=== PATIENT | male | born 1940 | race Caucasian/White ===

== ENCOUNTER 2020-04-27 02:58 | Outpatient (CLI) | payer OTHER, SELFPAY ==
[2020-04-27 07:56] LABS: ALT 14 U/L (16-63); AST 13 U/L (15-37); Albumin 3.1 g/dL (3.4-5.0); Alkaline Phosphatase 66 U/L (46-116); Anion Gap 9.1 mmol/L (3-11); BUN 18 mg/dL (7-18); Bilirubin, Total 0.6 mg/dL (0.2-1.0); CO2 25.9 mmol/L (21.0-32.0); CREATININE 1.3 mg/dL (0.70-1.30); Calcium 8.9 mg/dL (8.5-10.1); Chloride 105 mmol/L (98-107); Estimated GFR 53.25 (mL/min/1.73m2); Glucose 97 mg/dL (74-106); Potassium 4.1 mmol/L (3.5-5.1); Sodium 140 mmol/L (136-145); Total Protein 8.4 g/dL (6.4-8.2)
[2020-04-27 08:07] LABS: Abs Immature Grans 0.02 10^3/uL (0.0-0.06); Absolute Basophil Count 0.04 10^3/uL (0.0-0.2); Absolute Eosinophil Count 0.12 10^3/uL (0.0-0.7); Absolute Lymphocyte Count 1.21 10^3/uL (1.2-3.4); Absolute Monocyte Count 0.51 10^3/uL (0.1-0.8); Absolute Neutrophil Count 2.82 10^3/uL (1.2-6.7); Basophils % 0.8; Eosinophils % 2.5; HCT 42.2 % (40.0-50.0); HGB 14.3 g/dL (13.5-17.5); Immature Grans % 0.4; Lymphocytes % 25.6; MCH 31.4 pg (27.0-33.0); MCHC 33.9 % (32.0-36.0); MCV 92.5 fL (80-95); MPV 10.3 fL (8.0-11.0); Monocytes % 10.8; Neutrophils % 59.9; Nucleated RBC 0 %; Platelet Count 226 10^3/uL (130-400); RBC 4.56 10^6/uL (4.36-5.78); RDW 13.6 % (11.8-14.1); RDW-SD 46.6 fL; WBC 4.72 10^3/uL (4.4-10.8)
[2020-04-28 10:39] LABS: IgA 2902 mg/dL (85-499); IgG 445 mg/dL (610-1,616); IgM 28 mg/dL (35-242); Kappa Free Light Chain 80.98 mg/dL (0.33-1.94); Lambda Free Light Chain 0.71 mg/dL (0.57-2.63)
[2020-04-28 14:16] LABS: Albumin 44.5 % (55.8-66.1); Comment (See Note); Monoclonal Spike 28.2 % (None Seen); Total Protein 8.3 g/dL (6.3-8.2)
[2020-04-28 15:07] LABS: Immunotyping, Serum (See Note)
== END 2020-04-27 02:59 | disposition home or self-care (01) ==
PROVIDERS: PCP Family Medicine; Visit Provider Internal Medicine Hematology & Oncology
DX: C90.00 Multiple myeloma not having achieved remission (principal)
CPT/HCPCS: 36415; 80053; 82784; 83883; 84165; 85025; 86320

== ENCOUNTER 2020-05-04 03:50 | Outpatient (CLI) | payer OTHER, SELFPAY ==
[2020-05-04 07:53] LABS: Abs Immature Grans 0.06 10^3/uL (0.0-0.06); Absolute Basophil Count 0.04 10^3/uL (0.0-0.2); Absolute Eosinophil Count 0.27 10^3/uL (0.0-0.7); Absolute Lymphocyte Count 0.91 10^3/uL (1.2-3.4); Absolute Neutrophil Count 5.02 10^3/uL (1.2-6.7); Basophils % 0.6; Eosinophils % 3.9; HCT 42.3 % (40.0-50.0); HGB 14.2 g/dL (13.5-17.5); Immature Grans % 0.9; Lymphocytes % 13.2; MCH 31.3 pg (27.0-33.0); MCHC 33.6 % (32.0-36.0); MCV 93.4 fL (80-95); MPV 11.8 fL (8.0-11.0); Monocytes % 8.7; Neutrophils % 72.7; Nucleated RBC 0 %; Platelet Count 173 10^3/uL (130-400); RBC 4.53 10^6/uL (4.36-5.78); RDW 13.8 % (11.8-14.1); RDW-SD 47.5 fL
== END 2020-05-04 03:51 | disposition home or self-care (01) ==
LOC: LBO 03:50
PROVIDERS: PCP Family Medicine; Visit Provider Internal Medicine Hematology & Oncology
DX: C90.00 Multiple myeloma not having achieved remission (principal)
CPT/HCPCS: 36415; 85025

== ENCOUNTER 2020-05-18 03:24 | Outpatient (CLI) | payer OTHER, SELFPAY ==
[2020-05-18 07:38] LABS: Abs Immature Grans 0.01 10^3/uL (0.0-0.06); Absolute Basophil Count 0.08 10^3/uL (0.0-0.2); Absolute Eosinophil Count 0.17 10^3/uL (0.0-0.7); Absolute Lymphocyte Count 0.85 10^3/uL (1.2-3.4); Absolute Monocyte Count 0.81 10^3/uL (0.1-0.8); Absolute Neutrophil Count 2.32 10^3/uL (1.2-6.7); Basophils % 1.9; HCT 39.8 % (40.0-50.0); HGB 13.4 g/dL (13.5-17.5); Immature Grans % 0.2; MCH 31.5 pg (27.0-33.0); MCHC 33.7 % (32.0-36.0); MCV 93.4 fL (80-95); MPV 9.4 fL (8.0-11.0); Monocytes % 19.1; Neutrophils % 54.8; Nucleated RBC 0 %; Platelet Count 196 10^3/uL (130-400); RBC 4.26 10^6/uL (4.36-5.78); RDW 13.8 % (11.8-14.1); RDW-SD 46.5 fL; WBC 4.24 10^3/uL (4.4-10.8)
[2020-05-18 07:53] LABS: ALT 18 U/L (16-63); AST 12 U/L (15-37); Albumin 2.9 g/dL (3.4-5.0); Alkaline Phosphatase 69 U/L (46-116); Anion Gap 9.6 mmol/L (3-11); BUN 15 mg/dL (7-18); Bilirubin, Total 0.6 mg/dL (0.2-1.0); CO2 24.4 mmol/L (21.0-32.0); CREATININE 1.5 mg/dL (0.70-1.30); Calcium 8.5 mg/dL (8.5-10.1); Chloride 107 mmol/L (98-107); Estimated GFR 45.14 (mL/min/1.73m2); Glucose 91 mg/dL (74-106); Potassium 4.2 mmol/L (3.5-5.1); Sodium 141 mmol/L (136-145); Total Protein 6.7 g/dL (6.4-8.2)
[2020-05-19 09:43] LABS: IgA 1306 mg/dL (85-499); IgG 459 mg/dL (610-1,616); IgM 27 mg/dL (35-242); Kappa Free Light Chain 14.89 mg/dL (0.33-1.94); Lambda Free Light Chain 1.08 mg/dL (0.57-2.63)
[2020-05-19 12:43] LABS: Albumin 51.2 % (55.8-66.1); Comment (See Note); Monoclonal Spike 15.3 % (None Seen); Total Protein 6.4 g/dL (6.3-8.2)
== END 2020-05-18 03:25 | disposition home or self-care (01) ==
PROVIDERS: PCP Family Medicine; Visit Provider Internal Medicine Hematology & Oncology
DX: C90.00 Multiple myeloma not having achieved remission (principal)
CPT/HCPCS: 36415; 80053; 82784; 83883; 84165; 85025

== ENCOUNTER 2020-05-25 03:38 | Outpatient (CLI) | payer OTHER, SELFPAY ==
[2020-05-25 07:39] LABS: Abs Immature Grans 0.13 10^3/uL (0.0-0.06); Absolute Basophil Count 0.05 10^3/uL (0.0-0.2); Absolute Eosinophil Count 0.56 10^3/uL (0.0-0.7); Absolute Lymphocyte Count 0.87 10^3/uL (1.2-3.4); Absolute Neutrophil Count 3.86 10^3/uL (1.2-6.7); Basophils % 0.8; Eosinophils % 9.2; HCT 40.4 % (40.0-50.0); HGB 13.3 g/dL (13.5-17.5); Immature Grans % 2.1; Lymphocytes % 14.3; MCH 31.4 pg (27.0-33.0); MCHC 32.9 % (32.0-36.0); MCV 95.5 fL (80-95); MPV 11.7 fL (8.0-11.0); Monocytes % 9.9; Neutrophils % 63.7; Nucleated RBC 1 %; RBC 4.23 10^6/uL (4.36-5.78); RDW 14.4 % (11.8-14.1); WBC 6.07 10^3/uL (4.4-10.8)
[2020-05-25 08:00] LABS: Platelet Count 118 10^3/uL (130-400)
== END 2020-05-25 03:39 | disposition home or self-care (01) ==
LOC: LBO 03:38
PROVIDERS: PCP Family Medicine; Visit Provider Internal Medicine Hematology & Oncology
DX: C90.00 Multiple myeloma not having achieved remission (principal)
CPT/HCPCS: 36415; 85025

== ENCOUNTER 2020-06-04 10:53 | Outpatient (CLI) | payer OTHER, SELFPAY ==
[2020-06-04 11:45] LABS: ALT 25 U/L (16-63); AST 27 U/L (15-37); Alkaline Phosphatase 69 U/L (46-116); Anion Gap 12.2 mmol/L (3-11); BUN 19 mg/dL (7-18); Bilirubin, Total 1.4 mg/dL (0.2-1.0); CO2 23.8 mmol/L (21.0-32.0); CREATININE 1.7 mg/dL (0.70-1.30); Calcium 8.4 mg/dL (8.5-10.1); Chloride 103 mmol/L (98-107); Estimated GFR 39.07 (mL/min/1.73m2); Glucose 90 mg/dL (74-106); Potassium 3.5 mmol/L (3.5-5.1); Sodium 139 mmol/L (136-145)
[2020-06-05 10:30] LABS: IgA 436 mg/dL (85-499); IgG 355 mg/dL (610-1,616); IgM 18 mg/dL (35-242); Lambda Free Light Chain 0.87 mg/dL (0.57-2.63)
[2020-06-05 13:15] LABS: Comment (See Note); Total Protein 5.6 g/dL (6.3-8.2)
== END 2020-06-04 10:54 | disposition home or self-care (01) ==
LOC: LBO 10:53
PROVIDERS: PCP Family Medicine; Visit Provider Internal Medicine Hematology & Oncology
DX: C90.00 Multiple myeloma not having achieved remission (principal)
CPT/HCPCS: 36415; 80053; 82784; 83883; 84165

== ENCOUNTER 2020-06-08 04:23 | Outpatient (CLI) | payer OTHER, SELFPAY ==
[2020-06-08 09:02] LABS: Abs Immature Grans 0.03 10^3/uL (0.0-0.06); Absolute Eosinophil Count 0.32 10^3/uL (0.0-0.7); Absolute Monocyte Count 1.43 10^3/uL (0.1-0.8); Absolute Neutrophil Count 3.23 10^3/uL (1.2-6.7); Basophils % 1.8; Eosinophils % 5.7; HCT 36.3 % (40.0-50.0); HGB 12.3 g/dL (13.5-17.5); Immature Grans % 0.5; Lymphocytes % 8.9; MCH 31.3 pg (27.0-33.0); MCHC 33.9 % (32.0-36.0); MCV 92.4 fL (80-95); MPV 10.1 fL (8.0-11.0); Monocytes % 25.5; Neutrophils % 57.6; Nucleated RBC 0 %; Platelet Count 218 10^3/uL (130-400); RBC 3.93 10^6/uL (4.36-5.78); RDW 14.6 % (11.8-14.1); RDW-SD 49.2 fL; WBC 5.61 10^3/uL (4.4-10.8)
[2020-06-08 09:15] LABS: ALT 21 U/L (16-63); AST 17 U/L (15-37); Albumin 2.8 g/dL (3.4-5.0); Alkaline Phosphatase 65 U/L (46-116); BUN 19 mg/dL (7-18); CREATININE 1.6 mg/dL (0.70-1.30); Calcium 8.2 mg/dL (8.5-10.1); Chloride 108 mmol/L (98-107); Glucose 120 mg/dL (74-106); Potassium 3.8 mmol/L (3.5-5.1); Sodium 141 mmol/L (136-145); Total Protein 5.8 g/dL (6.4-8.2)
[2020-06-08 13:17] LABS: Bilirubin Negative (Negative); Blood Small (Negative); Clarity Cloudy (Clear); Glucose 100 mg/dL (Negative); Ketones Negative (Negative); Leukocyte Esterase Small (Negative); Nitrite Positive (Negative); Specific Gravity >= 1.030 (1.005-1.025); Urobilinogen 0.2 EU/dL (Up TO 0.2)
[2020-06-08 13:33] LABS: WBC >50 HPF (0-5)
[2020-06-08 13:34] LABS: Bacteria Many HPF (Negative); C & S Indicated? Yes
[2020-06-09 11:28] LABS: IgA 355 mg/dL (85-499); IgG 389 mg/dL (610-1,616); IgM 24 mg/dL (35-242); Kappa Free Light Chain 2.13 mg/dL (0.33-1.94); Lambda Free Light Chain 1.23 mg/dL (0.57-2.63)
[2020-06-09 15:26] LABS: Albumin 58.4 % (55.8-66.1); Comment (See Note); Total Protein 5.4 g/dL (6.3-8.2)
[2020-06-09 16:29] LABS: Immunotyping, Serum (See Note)
== END 2020-06-08 04:24 | disposition home or self-care (01) ==
LOC: LBO 04:23
PROVIDERS: Nurse Practitioner Family; PCP Family Medicine; Visit Provider Internal Medicine Hematology & Oncology
DX: C90.00 Multiple myeloma not having achieved remission (principal); R82.998 Other abnormal findings in urine
CPT/HCPCS: 36415; 80053; 82784; 81003; 81015; 83883; 84165; 85025; 86320; 87086

== ENCOUNTER 2020-06-11 02:09 | Outpatient (CLI) | payer OTHER, SELFPAY ==
[2020-06-11 11:27] LABS: Abs Immature Grans 0.03 10^3/uL (0.0-0.06); Absolute Basophil Count 0.15 10^3/uL (0.0-0.2); Absolute Eosinophil Count 0.34 10^3/uL (0.0-0.7); Absolute Lymphocyte Count 0.78 10^3/uL (1.2-3.4); Absolute Monocyte Count 1.11 10^3/uL (0.1-0.8); Absolute Neutrophil Count 3.08 10^3/uL (1.2-6.7); Basophils % 2.7; Eosinophils % 6.2; HCT 34.5 % (40.0-50.0); HGB 11.8 g/dL (13.5-17.5); Immature Grans % 0.5; Lymphocytes % 14.2; MCH 32.2 pg (27.0-33.0); MCHC 34.2 % (32.0-36.0); MPV 9.4 fL (8.0-11.0); Monocytes % 20.2; Neutrophils % 56.2; Nucleated RBC 0 %; Platelet Count 224 10^3/uL (130-400); RBC 3.67 10^6/uL (4.36-5.78); RDW 14.2 % (11.8-14.1); RDW-SD 48.5 fL; WBC 5.49 10^3/uL (4.4-10.8)
[2020-06-11 11:40] LABS: ALT 18 U/L (16-63); AST 15 U/L (15-37); Albumin 2.9 g/dL (3.4-5.0); Alkaline Phosphatase 68 U/L (46-116); Anion Gap 8.5 mmol/L (3-11); BUN 18 mg/dL (7-18); Bilirubin, Total 1.2 mg/dL (0.2-1.0); CO2 25.5 mmol/L (21.0-32.0); CREATININE 1.5 mg/dL (0.70-1.30); Calcium 8.2 mg/dL (8.5-10.1); Chloride 107 mmol/L (98-107); Estimated GFR 45.14 (mL/min/1.73m2); Glucose 108 mg/dL (74-106); Potassium 4.1 mmol/L (3.5-5.1); Sodium 141 mmol/L (136-145); Total Protein 5.9 g/dL (6.4-8.2)
[2020-06-12 09:09] LABS: IgA 299 mg/dL (85-499); IgG 382 mg/dL (610-1,616); IgM 21 mg/dL (35-242); Kappa Free Light Chain 2.24 mg/dL (0.33-1.94); Lambda Free Light Chain 1.28 mg/dL (0.57-2.63)
[2020-06-12 16:31] LABS: Albumin 57.8 % (55.8-66.1); Comment (See Note); Total Protein 5.5 g/dL (6.3-8.2)
== END 2020-06-11 02:10 | disposition home or self-care (01) ==
LOC: LBO 02:09
PROVIDERS: PCP Family Medicine; Visit Provider Internal Medicine Hematology & Oncology
DX: C90.00 Multiple myeloma not having achieved remission (principal)
CPT/HCPCS: 36415; 80053; 82784; 83883; 84165; 85025

== ENCOUNTER 2020-06-26 02:22 | Outpatient (CLI) | payer OTHER, SELFPAY ==
[2020-06-26 08:54] LABS: Abs Immature Grans 0.04 10^3/uL (0.0-0.06); Absolute Basophil Count 0.02 10^3/uL (0.0-0.2); Absolute Eosinophil Count 0.11 10^3/uL (0.0-0.7); Absolute Lymphocyte Count 0.42 10^3/uL (1.2-3.4); Absolute Monocyte Count 0.37 10^3/uL (0.1-0.8); Absolute Neutrophil Count 8.24 10^3/uL (1.2-6.7); Basophils % 0.2; Eosinophils % 1.2; HCT 41.4 % (40.0-50.0); HGB 13.8 g/dL (13.5-17.5); Immature Grans % 0.4; Lymphocytes % 4.6; MCH 30.6 pg (27.0-33.0); MCHC 33.3 % (32.0-36.0); MCV 91.8 fL (80-95); Neutrophils % 89.6; Nucleated RBC 0 %; Platelet Count 337 10^3/uL (130-400); RBC 4.51 10^6/uL (4.36-5.78); RDW 13.9 % (11.8-14.1); RDW-SD 47.1 fL
[2020-06-26 09:07] LABS: ALT 16 U/L (16-63); AST 10 U/L (15-37); Albumin 3.3 g/dL (3.4-5.0); Alkaline Phosphatase 72 U/L (46-116); Anion Gap 8.2 mmol/L (3-11); BUN 20 mg/dL (7-18); Bilirubin, Total 1.1 mg/dL (0.2-1.0); CO2 27.8 mmol/L (21.0-32.0); CREATININE 1.3 mg/dL (0.70-1.30); Calcium 8.9 mg/dL (8.5-10.1); Chloride 103 mmol/L (98-107); Estimated GFR 53.25 (mL/min/1.73m2); Glucose 124 mg/dL (74-106); Potassium 3.5 mmol/L (3.5-5.1); Sodium 139 mmol/L (136-145); Total Protein 6.4 g/dL (6.4-8.2)
[2020-06-29 11:45] LABS: IgA 446 mg/dL (85-499); IgG 1088 mg/dL (610-1,616); IgM 66 mg/dL (35-242); Kappa Free Light Chain 3.04 mg/dL (0.33-1.94); Lambda Free Light Chain 1.39 mg/dL (0.57-2.63)
[2020-06-29 16:25] LABS: Albumin 61.3 % (55.8-66.1); Comment (See Note); Total Protein 6.1 g/dL (6.3-8.2)
== END 2020-06-26 02:23 | disposition home or self-care (01) ==
LOC: LBO 02:22
PROVIDERS: PCP Family Medicine; Visit Provider Internal Medicine Hematology & Oncology
DX: C90.00 Multiple myeloma not having achieved remission (principal)
CPT/HCPCS: 36415; 80053; 82784; 83883; 84165; 85025

== ENCOUNTER 2020-07-09 03:26 | Outpatient (CLI) | payer OTHER, SELFPAY ==
[2020-07-09 11:13] LABS: ALT 14 U/L (16-63); AST 14 U/L (15-37); Albumin 3.4 g/dL (3.4-5.0); Alkaline Phosphatase 68 U/L (46-116); Anion Gap 6.2 mmol/L (3-11); BUN 14 mg/dL (7-18); Bilirubin, Total 0.9 mg/dL (0.2-1.0); CO2 29.8 mmol/L (21.0-32.0); CREATININE 1.3 mg/dL (0.70-1.30); Calcium 9.2 mg/dL (8.5-10.1); Chloride 105 mmol/L (98-107); Estimated GFR 53.25 (mL/min/1.73m2); Glucose 121 mg/dL (74-106); Potassium 4.2 mmol/L (3.5-5.1); Sodium 141 mmol/L (136-145); Total Protein 6.7 g/dL (6.4-8.2)
[2020-07-09 15:02] LABS: Abs Immature Grans 0.01 10^3/uL (0.0-0.06); Absolute Basophil Count 0.05 10^3/uL (0.0-0.2); Absolute Monocyte Count 0.61 10^3/uL (0.1-0.8); Absolute Neutrophil Count 3.36 10^3/uL (1.2-6.7); HCT 41.8 % (40.0-50.0); HGB 13.8 g/dL (13.5-17.5); Immature Grans % 0.2; Lymphocytes % 15.9; MCH 31.2 pg (27.0-33.0); MCV 94.6 fL (80-95); MPV 10.1 fL (8.0-11.0); Monocytes % 12.1; Neutrophils % 66.8; Nucleated RBC 0 %; Platelet Count 220 10^3/uL (130-400); RBC 4.42 10^6/uL (4.36-5.78); RDW 14.2 % (11.8-14.1); RDW-SD 49.7 fL; WBC 5.03 10^3/uL (4.4-10.8)
[2020-07-10 09:46] LABS: IgA 167 mg/dL (85-499); IgG 521 mg/dL (610-1,616); IgM 32 mg/dL (35-242); Kappa Free Light Chain 1.97 mg/dL (0.33-1.94); Lambda Free Light Chain 0.88 mg/dL (0.57-2.63)
[2020-07-10 15:46] LABS: Albumin 59.6 % (55.8-66.1); Comment (See Note); Total Protein 6.1 g/dL (6.3-8.2)
[2020-07-10 15:49] LABS: Immunotyping, Serum (See Note)
== END 2020-07-09 03:27 | disposition home or self-care (01) ==
LOC: LBO 03:26
PROVIDERS: PCP Family Medicine; Visit Provider Internal Medicine Hematology & Oncology
DX: C90.00 Multiple myeloma not having achieved remission (principal)
CPT/HCPCS: 36415; 80053; 82784; 83883; 84165; 85025; 86320

== ENCOUNTER 2020-09-03 14:02 | Outpatient (CLI) | payer OTHER, SELFPAY ==
[2020-09-03 14:25] LABS: Abs Immature Grans 0.02 10^3/uL (0.0-0.06); Absolute Basophil Count 0.05 10^3/uL (0.0-0.2); Absolute Eosinophil Count 0.22 10^3/uL (0.0-0.7); Absolute Lymphocyte Count 0.94 10^3/uL (1.2-3.4); Absolute Monocyte Count 0.58 10^3/uL (0.1-0.8); Absolute Neutrophil Count 3.78 10^3/uL (1.2-6.7); Basophils % 0.9; Eosinophils % 3.9; HCT 40.6 % (40.0-50.0); HGB 13.6 g/dL (13.5-17.5); Immature Grans % 0.4; Lymphocytes % 16.8; MCHC 33.5 % (32.0-36.0); MCV 92.5 fL (80-95); MPV 10.2 fL (8.0-11.0); Monocytes % 10.4; Neutrophils % 67.6; Nucleated RBC 0 %; Platelet Count 206 10^3/uL (130-400); RBC 4.39 10^6/uL (4.36-5.78); RDW 13.4 % (11.8-14.1); RDW-SD 46.2 fL; WBC 5.59 10^3/uL (4.4-10.8)
[2020-09-03 14:39] LABS: ALT 13 U/L (16-63); AST 7 U/L (15-37); Albumin 3.2 g/dL (3.4-5.0); Alkaline Phosphatase 56 U/L (46-116); Anion Gap 7.6 mmol/L (3-11); BUN 16 mg/dL (7-18); Bilirubin, Total 0.7 mg/dL (0.2-1.0); CO2 26.4 mmol/L (21.0-32.0); CREATININE 1.3 mg/dL (0.70-1.30); Calcium 8.7 mg/dL (8.5-10.1); Chloride 108 mmol/L (98-107); Estimated GFR 53.12 (mL/min/1.73m2); Glucose 112 mg/dL (74-106); Potassium 3.8 mmol/L (3.5-5.1); Sodium 142 mmol/L (136-145); Total Protein 5.9 g/dL (6.4-8.2)
[2020-09-04 09:22] LABS: IgA 190 mg/dL (85-499); IgG 514 mg/dL (610-1,616); IgM 34 mg/dL (35-242); Kappa Free Light Chain 3.31 mg/dL (0.33-1.94); Lambda Free Light Chain 0.79 mg/dL (0.57-2.63)
[2020-09-04 13:32] LABS: Albumin 62.7 % (55.8-66.1); Comment (See Note); Total Protein 5.6 g/dL (6.3-8.2)
[2020-09-04 14:32] LABS: Immunotyping, Serum (See Note)
== END 2020-09-03 14:03 | disposition home or self-care (01) ==
LOC: LBO 14:04
PROVIDERS: PCP Family Medicine; Visit Provider Internal Medicine Hematology & Oncology
DX: C90.00 Multiple myeloma not having achieved remission (principal)
CPT/HCPCS: 36415; 80053; 82784; 83883; 84165; 85025; 86320

== ENCOUNTER 2020-10-22 02:50 | Outpatient (CLI) | payer OTHER, SELFPAY ==
[2020-10-22 09:47] LABS: Abs Immature Grans 0.01 10^3/uL (0.0-0.06); Absolute Basophil Count 0.03 10^3/uL (0.0-0.2); Absolute Eosinophil Count 0.16 10^3/uL (0.0-0.7); Absolute Lymphocyte Count 0.83 10^3/uL (1.2-3.4); Absolute Monocyte Count 0.58 10^3/uL (0.1-0.8); Basophils % 0.6; Eosinophils % 3.3; HCT 43.5 % (40.0-50.0); HGB 14.2 g/dL (13.5-17.5); Immature Grans % 0.2; Lymphocytes % 16.9; MCH 30.3 pg (27.0-33.0); MCHC 32.6 % (32.0-36.0); MCV 92.8 fL (80-95); MPV 9.8 fL (8.0-11.0); Monocytes % 11.8; Neutrophils % 67.2; Nucleated RBC 0 %; Platelet Count 186 10^3/uL (130-400); RBC 4.69 10^6/uL (4.36-5.78); RDW 13.2 % (11.8-14.1); WBC 4.91 10^3/uL (4.4-10.8)
[2020-10-22 10:06] LABS: ALT 10 U/L (16-63); AST 11 U/L (15-37); Albumin 3.4 g/dL (3.4-5.0); Alkaline Phosphatase 59 U/L (46-116); Anion Gap 0.3 mmol/L (3-11); BUN 12 mg/dL (7-18); Bilirubin, Total 0.7 mg/dL (0.2-1.0); CO2 29.7 mmol/L (21.0-32.0); CREATININE 1.4 mg/dL (0.70-1.30); Chloride 108 mmol/L (98-107); Estimated GFR 48.76 (mL/min/1.73m2); Glucose 104 mg/dL (74-106); Potassium 4.2 mmol/L (3.5-5.1); Sodium 138 mmol/L (136-145); Total Protein 6.1 g/dL (6.4-8.2)
[2020-10-23 10:11] LABS: IgA 252 mg/dL (85-499); IgG 502 mg/dL (610-1,616); IgM 28 mg/dL (35-242); Kappa Free Light Chain 4.34 mg/dL (0.33-1.94); Lambda Free Light Chain 0.93 mg/dL (0.57-2.63)
[2020-10-23 13:47] LABS: Albumin 64.2 % (55.8-66.1); Comment (See Note)
== END 2020-10-22 02:51 | disposition home or self-care (01) ==
PROVIDERS: Internal Medicine Hematology & Oncology; PCP Family Medicine; Visit Provider Nurse Practitioner Family
DX: C90.00 Multiple myeloma not having achieved remission (principal)
CPT/HCPCS: 36415; 80053; 82784; 83883; 84165; 85025

== ENCOUNTER 2020-11-19 03:05 | Outpatient (CLI) | payer OTHER, SELFPAY ==
[2020-11-19 09:56] LABS: Abs Immature Grans 0.01 10^3/uL (0.0-0.06); Absolute Basophil Count 0.04 10^3/uL (0.0-0.2); Absolute Eosinophil Count 0.13 10^3/uL (0.0-0.7); Absolute Lymphocyte Count 0.98 10^3/uL (1.2-3.4); Absolute Monocyte Count 0.63 10^3/uL (0.1-0.8); Absolute Neutrophil Count 3.49 10^3/uL (1.2-6.7); Basophils % 0.8; Eosinophils % 2.5; HCT 41.2 % (40.0-50.0); HGB 13.7 g/dL (13.5-17.5); Immature Grans % 0.2; Lymphocytes % 18.6; MCH 29.8 pg (27.0-33.0); MCHC 33.3 % (32.0-36.0); MCV 89.8 fL (80-95); MPV 9.5 fL (8.0-11.0); Monocytes % 11.9; Nucleated RBC 0 %; Platelet Count 243 10^3/uL (130-400); RBC 4.59 10^6/uL (4.36-5.78); RDW 12.9 % (11.8-14.1); RDW-SD 42.5 fL; WBC 5.28 10^3/uL (4.4-10.8)
[2020-11-19 10:48] LABS: ALT 10 U/L (16-63); AST 6 U/L (15-37); Albumin 3.5 g/dL (3.4-5.0); Alkaline Phosphatase 69 U/L (46-116); BUN 10 mg/dL (7-18); Bilirubin, Total 0.7 mg/dL (0.2-1.0); CREATININE 1.4 mg/dL (0.70-1.30); Chloride 106 mmol/L (98-107); Estimated GFR 48.76 (mL/min/1.73m2); Glucose 93 mg/dL (74-106); Potassium 4.6 mmol/L (3.5-5.1); Sodium 141 mmol/L (136-145); Total Protein 6.1 g/dL (6.4-8.2)
[2020-11-20 10:15] LABS: IgA 315 mg/dL (85-499); IgG 555 mg/dL (610-1,616); IgM 34 mg/dL (35-242); Kappa Free Light Chain 5.66 mg/dL (0.33-1.94); Lambda Free Light Chain 0.91 mg/dL (0.57-2.63)
[2020-11-20 12:53] LABS: Albumin 62.1 % (55.8-66.1); Comment (See Note)
[2021-01-15 10:15] LABS: Immunotyping, Serum (See Note)
== END 2020-11-19 03:06 | disposition home or self-care (01) ==
LOC: LBO 03:05
PROVIDERS: PCP Family Medicine; Visit Provider Internal Medicine Hematology & Oncology
DX: C90.00 Multiple myeloma not having achieved remission (principal)
CPT/HCPCS: 36415; 80053; 82784; 83883; 84165; 85025; 86320

== ENCOUNTER 2020-12-24 10:49 | Outpatient (CLI) | payer OTHER, SELFPAY ==
[2020-12-24 12:00] LABS: Abs Immature Grans 0.02 10^3/uL (0.0-0.06); Absolute Basophil Count 0.08 10^3/uL (0.0-0.2); Absolute Eosinophil Count 0.31 10^3/uL (0.0-0.7); Absolute Lymphocyte Count 0.91 10^3/uL (1.2-3.4); Absolute Monocyte Count 0.67 10^3/uL (0.1-0.8); Absolute Neutrophil Count 2.59 10^3/uL (1.2-6.7); Basophils % 1.7; Eosinophils % 6.8; HCT 41.3 % (40.0-50.0); HGB 13.9 g/dL (13.5-17.5); Immature Grans % 0.4; Lymphocytes % 19.9; MCH 30.3 pg (27.0-33.0); MCHC 33.7 % (32.0-36.0); MCV 90.2 fL (80-95); MPV 9.9 fL (8.0-11.0); Monocytes % 14.6; Neutrophils % 56.6; Nucleated RBC 0 %; Platelet Count 177 10^3/uL (130-400); RBC 4.58 10^6/uL (4.36-5.78); RDW 13.4 % (11.8-14.1); RDW-SD 44.1 fL; WBC 4.58 10^3/uL (4.4-10.8)
[2020-12-24 13:21] LABS: ALT 16 U/L (16-63); AST 13 U/L (15-37); Albumin 3.3 g/dL (3.4-5.0); Alkaline Phosphatase 67 U/L (46-116); Anion Gap 8.8 mmol/L (3-11); BUN 10 mg/dL (7-18); Bilirubin, Total 0.7 mg/dL (0.2-1.0); CO2 28.2 mmol/L (21.0-32.0); CREATININE 1.3 mg/dL (0.70-1.30); Calcium 8.5 mg/dL (8.5-10.1); Chloride 105 mmol/L (98-107); Estimated GFR 53.12 (mL/min/1.73m2); Glucose 90 mg/dL (74-106); Sodium 142 mmol/L (136-145)
[2020-12-25 09:13] LABS: IgA 337 mg/dL (85-499); IgG 606 mg/dL (610-1,616); IgM 36 mg/dL (35-242); Lambda Free Light Chain 1.61 mg/dL (0.57-2.63)
[2020-12-25 15:26] LABS: Albumin 60.3 % (55.8-66.1); Comment (See Note)
[2021-01-26 12:05] LABS: Immunotyping, Serum (See Note)
== END 2020-12-24 10:50 | disposition home or self-care (01) ==
PROVIDERS: PCP Family Medicine; Visit Provider Nurse Practitioner Family
DX: C90.00 Multiple myeloma not having achieved remission (principal)
CPT/HCPCS: 36415; 80053; 82784; 83883; 84165; 85025; 86320

== ENCOUNTER 2021-01-15 03:41 | Outpatient (CLI) | payer MEDICARE, SELFPAY ==
[2021-01-15 09:18] LABS: Abs Immature Grans 0.03 10^3/uL (0.0-0.06); Absolute Basophil Count 0.11 10^3/uL (0.0-0.2); Absolute Lymphocyte Count 0.77 10^3/uL (1.2-3.4); Absolute Monocyte Count 0.72 10^3/uL (0.1-0.8); Absolute Neutrophil Count 2.29 10^3/uL (1.2-6.7); Basophils % 2.6; Eosinophils % 7.1; HCT 42.6 % (40.0-50.0); HGB 14.1 g/dL (13.5-17.5); Immature Grans % 0.7; Lymphocytes % 18.2; MCH 30.3 pg (27.0-33.0); MCHC 33.1 % (32.0-36.0); MCV 91.4 fL (80-95); MPV 10.4 fL (8.0-11.0); Monocytes % 17.1; Neutrophils % 54.3; Nucleated RBC 0 %; Platelet Count 191 10^3/uL (130-400); RBC 4.66 10^6/uL (4.36-5.78); RDW 13.5 % (11.8-14.1); RDW-SD 46.2 fL; WBC 4.22 10^3/uL (4.4-10.8)
[2021-01-15 10:31] LABS: Albumin 3.3 g/dL (3.4-5.0); Alkaline Phosphatase 65 U/L (46-116); Anion Gap 7.9 mmol/L (3-11); BUN 11 mg/dL (7-18); Bilirubin, Total 0.9 mg/dL (0.2-1.0); CO2 27.1 mmol/L (21.0-32.0); CREATININE 1.3 mg/dL (0.70-1.30); Calcium 8.5 mg/dL (8.5-10.1); Chloride 109 mmol/L (98-107); Estimated GFR 53.12 (mL/min/1.73m2); Glucose 91 mg/dL (74-106); Potassium 4.2 mmol/L (3.5-5.1); Sodium 144 mmol/L (136-145); Total Protein 5.9 g/dL (6.4-8.2)
[2021-01-15 10:32] LABS: ALT 15 U/L (16-63); AST 14 U/L (15-37)
[2021-01-16 15:15] LABS: PSA, Ultrasensitive 1.9 ng/mL (<= 7.2)
[2021-01-18 13:38] LABS: Albumin 61.3 % (55.8-66.1); Comment (See Note)
[2021-01-18 15:25] LABS: IgA 359 mg/dL (85-499); IgG 717 mg/dL (610-1,616); IgM 38 mg/dL (35-242); Lambda Free Light Chain 1.69 mg/dL (0.57-2.63)
[2021-01-18 17:49] LABS: Immunotyping, Serum (See Note)
== END 2021-01-15 03:42 | disposition home or self-care (01) ==
LOC: LBO 03:41
PROVIDERS: PCP Family Medicine; Visit Provider Internal Medicine Hematology & Oncology
DX: C61 Malignant neoplasm of prostate (principal); C90.00 Multiple myeloma not having achieved remission
CPT/HCPCS: 36415; 80053; 82784; 84153; 83883; 84165; 85025; 86320

== ENCOUNTER 2021-03-18 04:18 | Outpatient (CLI) | payer MEDICARE, SELFPAY ==
[2021-03-18 08:45] LABS: Abs Immature Grans 0.01 10^3/uL (0.0-0.06); Absolute Basophil Count 0.12 10^3/uL (0.0-0.2); Absolute Eosinophil Count 0.28 10^3/uL (0.0-0.7); Absolute Lymphocyte Count 0.89 10^3/uL (1.2-3.4); Absolute Monocyte Count 0.51 10^3/uL (0.1-0.8); Absolute Neutrophil Count 1.82 10^3/uL (1.2-6.7); Basophils % 3.3; Eosinophils % 7.7; HCT 44.8 % (40.0-50.0); HGB 14.8 g/dL (13.5-17.5); Immature Grans % 0.3; Lymphocytes % 24.5; MCH 29.1 pg (27.0-33.0); MCV 88.2 fL (80-95); MPV 10.2 fL (8.0-11.0); Neutrophils % 50.2; Nucleated RBC 0 %; Platelet Count 168 10^3/uL (130-400); RBC 5.08 10^6/uL (4.36-5.78); RDW 13.7 % (11.8-14.1); RDW-SD 44.3 fL; WBC 3.63 10^3/uL (4.4-10.8)
[2021-03-18 09:21] LABS: ALT 15 U/L (16-63); AST 19 U/L (15-37); Albumin 3.3 g/dL (3.4-5.0); Alkaline Phosphatase 73 U/L (46-116); Anion Gap 8.7 mmol/L (3-11); BUN 11 mg/dL (7-18); Bilirubin, Total 0.8 mg/dL (0.2-1.0); CO2 26.3 mmol/L (21.0-32.0); CREATININE 1.4 mg/dL (0.70-1.30); Calcium 8.5 mg/dL (8.5-10.1); Chloride 105 mmol/L (98-107); Estimated GFR 48.76 (mL/min/1.73m2); Glucose 90 mg/dL (74-106); Sodium 140 mmol/L (136-145); Total Protein 6.3 g/dL (6.4-8.2)
[2021-03-19 09:50] LABS: IgA 428 mg/dL (85-499); IgG 747 mg/dL (610-1,616); IgM 35 mg/dL (35-242); Kappa Free Light Chain 8.72 mg/dL (0.33-1.94); Lambda Free Light Chain 1.81 mg/dL (0.57-2.63)
[2021-03-19 13:27] LABS: Albumin 59.7 % (55.8-66.1); Comment (See Note); Total Protein 6.1 g/dL (6.3-8.2)
[2021-03-19 16:11] LABS: Immunotyping, Serum (See Note)
[2021-03-22 12:40] LABS: PSA, Ultrasensitive 1.8 ng/mL (<= 7.2)
== END 2021-03-18 04:19 | disposition home or self-care (01) ==
LOC: LBO 04:18
PROVIDERS: Surgery; PCP Family Medicine; Visit Provider Internal Medicine Hematology & Oncology
DX: C90.00 Multiple myeloma not having achieved remission (principal); C61 Malignant neoplasm of prostate
CPT/HCPCS: 36415; 80053; 82784; 84153; 83883; 84165; 85025; 86320

== ENCOUNTER 2021-04-08 16:29 | Outpatient (CLI) | payer MEDICARE, SELFPAY ==
[2021-04-08 10:08] LABS: Abs Immature Grans 0.02 10^3/uL (0.0-0.06); Absolute Basophil Count 0.11 10^3/uL (0.0-0.2); Absolute Eosinophil Count 0.23 10^3/uL (0.0-0.7); Absolute Monocyte Count 0.68 10^3/uL (0.1-0.8); Absolute Neutrophil Count 2.73 10^3/uL (1.2-6.7); Basophils % 2.3; Eosinophils % 4.8; HCT 44.2 % (40.0-50.0); HGB 14.6 g/dL (13.5-17.5); Immature Grans % 0.4; MCH 29.4 pg (27.0-33.0); MCV 88.9 fL (80-95); MPV 10.1 fL (8.0-11.0); Monocytes % 14.3; Neutrophils % 57.2; Nucleated RBC 0 %; Platelet Count 207 10^3/uL (130-400); RBC 4.97 10^6/uL (4.36-5.78); RDW 14.4 % (11.8-14.1); RDW-SD 46.5 fL; WBC 4.77 10^3/uL (4.4-10.8)
[2021-04-08 10:58] LABS: ALT 16 U/L (16-63); AST 14 U/L (15-37); Albumin 3.4 g/dL (3.4-5.0); Alkaline Phosphatase 80 U/L (46-116); Anion Gap 8.4 mmol/L (3-11); BUN 14 mg/dL (7-18); Bilirubin, Total 0.9 mg/dL (0.2-1.0); CO2 26.6 mmol/L (21.0-32.0); CREATININE 1.5 mg/dL (0.70-1.30); Calcium 8.7 mg/dL (8.5-10.1); Chloride 104 mmol/L (98-107); Estimated GFR 45.03 (mL/min/1.73m2); Glucose 106 mg/dL (74-106); Potassium 4.4 mmol/L (3.5-5.1); Sodium 139 mmol/L (136-145); Total Protein 6.5 g/dL (6.4-8.2)
[2021-04-09 11:24] LABS: IgA 469 mg/dL (85-499); IgG 784 mg/dL (610-1,616); IgM 38 mg/dL (35-242); Kappa Free Light Chain 8.96 mg/dL (0.33-1.94); Lambda Free Light Chain 1.67 mg/dL (0.57-2.63)
[2021-04-09 14:36] LABS: Albumin 57.7 % (55.8-66.1); Comment (See Note); Total Protein 6.5 g/dL (6.3-8.2)
== END 2021-04-08 16:30 | disposition home or self-care (01) ==
LOC: LBO 16:30
PROVIDERS: PCP Family Medicine; Visit Provider Internal Medicine Hematology & Oncology
DX: C90.00 Multiple myeloma not having achieved remission (principal)
CPT/HCPCS: 36415; 80053; 82784; 83883; 84165; 85025

== ENCOUNTER 2021-07-07 01:44 | Outpatient (CLI) | payer MEDICARE, SELFPAY ==
[2021-07-07 11:52] LABS: Abs Immature Grans 0.02 10^3/uL (0.0-0.06); Absolute Basophil Count 0.04 10^3/uL (0.0-0.2); Absolute Eosinophil Count 0.35 10^3/uL (0.0-0.7); Absolute Monocyte Count 0.32 10^3/uL (0.1-0.8); Absolute Neutrophil Count 2.15 10^3/uL (1.2-6.7); Basophils % 1.1; Eosinophils % 9.5; HCT 40.4 % (40.0-50.0); HGB 13.6 g/dL (13.5-17.5); Immature Grans % 0.5; Lymphocytes % 21.7; MCH 30.8 pg (27.0-33.0); MCHC 33.7 % (32.0-36.0); MCV 91 fL (80-95); MPV 10.6 fL (8.0-11.0); Monocytes % 8.7; Neutrophils % 58.5; Platelet Count 187 10^3/uL (130-400); RBC 4.42 10^6/uL (4.36-5.78); RDW 15.2 % (11.8-14.1); RDW-SD 51.5 fL; WBC 3.68 10^3/uL (4.4-10.8)
[2021-07-07 12:07] LABS: ALT 15 U/L (16-63); AST 21 U/L (15-37); Albumin 3.2 g/dL (3.4-5.0); Alkaline Phosphatase 73 U/L (46-116); Anion Gap 7.6 mmol/L (3-11); BUN 14 mg/dL (7-18); Bilirubin, Total 0.9 mg/dL (0.2-1.0); CO2 25.4 mmol/L (21.0-32.0); CREATININE 1.4 mg/dL (0.70-1.30); Calcium 8.2 mg/dL (8.5-10.1); Chloride 109 mmol/L (98-107); Estimated GFR 48.76 (mL/min/1.73m2); Glucose 119 mg/dL (74-106); Potassium 3.7 mmol/L (3.5-5.1); Sodium 142 mmol/L (136-145); Total Protein 6.4 g/dL (6.4-8.2)
[2021-07-08 10:05] LABS: IgA 540 mg/dL (85-499); IgG 702 mg/dL (610-1,616); IgM 33 mg/dL (35-242); Kappa Free Light Chain 11.26 mg/dL (0.33-1.94); Lambda Free Light Chain 1.48 mg/dL (0.57-2.63)
[2021-07-08 14:21] LABS: Albumin g/dL 3.4 g/dL (3.6-5.2); Comment (See Note); Monoclonal Spike 7.1 % (None Seen); Monoclonal Spike g/dL 0.4 g/dL (None Seen)
== END 2021-07-07 01:45 | disposition home or self-care (01) ==
LOC: LBO 01:44
PROVIDERS: PCP Family Medicine; Visit Provider Internal Medicine Hematology & Oncology
DX: C90.00 Multiple myeloma not having achieved remission (principal)
CPT/HCPCS: 36415; 80053; 82784; 83883; 84165; 85025

== ENCOUNTER 2021-09-17 02:03 | Outpatient (CLI) | payer MEDICARE, SELFPAY ==
[2021-09-17 08:03] LABS: Abs Immature Grans 0.03 10^3/uL (0.0-0.06); Absolute Basophil Count 0.12 10^3/uL (0.0-0.2); Absolute Eosinophil Count 0.37 10^3/uL (0.0-0.7); Absolute Lymphocyte Count 0.79 10^3/uL (1.2-3.4); Absolute Monocyte Count 0.49 10^3/uL (0.1-0.8); Absolute Neutrophil Count 1.63 10^3/uL (1.2-6.7); Basophils % 3.5; Eosinophils % 10.8; HCT 41.4 % (40.0-50.0); HGB 13.8 g/dL (13.5-17.5); Immature Grans % 0.9; MCH 30.5 pg (27.0-33.0); MCHC 33.3 % (32.0-36.0); MCV 92 fL (80-95); MPV 9.8 fL (8.0-11.0); Monocytes % 14.3; Neutrophils % 47.5; Platelet Count 118 10^3/uL (130-400); RBC 4.52 10^6/uL (4.36-5.78); RDW 14.6 % (11.8-14.1); RDW-SD 49.4 fL; WBC 3.43 10^3/uL (4.4-10.8)
[2021-09-17 08:34] LABS: ALT 17 U/L (16-63); AST 14 U/L (15-37); Albumin 3.2 g/dL (3.4-5.0); Alkaline Phosphatase 68 U/L (46-116); Anion Gap 7.3 mmol/L (3-11); BUN 11 mg/dL (7-18); Bilirubin, Total 0.8 mg/dL (0.2-1.0); CO2 28.7 mmol/L (21.0-32.0); CREATININE 1.4 mg/dL (0.70-1.30); Calcium 8.4 mg/dL (8.5-10.1); Chloride 106 mmol/L (98-107); Estimated GFR 48.64 (mL/min/1.73m2); Glucose 97 mg/dL (74-106); Potassium 3.7 mmol/L (3.5-5.1); Sodium 142 mmol/L (136-145); Total Protein 6.3 g/dL (6.4-8.2)
[2021-09-20 10:02] LABS: IgA 590 mg/dL (85-499); IgG 744 mg/dL (610-1,616); IgM 33 mg/dL (35-242); Kappa Free Light Chain 12.45 mg/dL (0.33-1.94); Lambda Free Light Chain 2.19 mg/dL (0.57-2.63)
[2021-09-20 13:45] LABS: Albumin 56.5 % (55.8-66.1); Albumin g/dL 3.4 g/dL (3.6-5.2); Comment (See Note); Monoclonal Spike g/dL 0.4 g/dL (None Seen); Total Protein 6.1 g/dL (6.3-8.2)
[2021-09-22 10:29] LABS: Immunotyping, Serum (See Note)
== END 2021-09-17 02:04 | disposition home or self-care (01) ==
LOC: LBO 02:03
PROVIDERS: PCP Family Medicine; Visit Provider Internal Medicine Hematology & Oncology
DX: C90.00 Multiple myeloma not having achieved remission (principal)
CPT/HCPCS: 36415; 80053; 82784; 83883; 84165; 85025; 86320

== ENCOUNTER 2021-10-12 03:34 | Outpatient (CLI) | payer MEDICARE, SELFPAY ==
[2021-10-12 10:24] LABS: Abs Immature Grans 0.01 10^3/uL (0.0-0.06); Absolute Lymphocyte Count 0.95 10^3/uL (1.2-3.4); Absolute Monocyte Count 0.61 10^3/uL (0.1-0.8); Basophils % 2.7; Eosinophils % 8.2; HCT 42.5 % (40.0-50.0); HGB 14.2 g/dL (13.5-17.5); Immature Grans % 0.3; Lymphocytes % 25.9; MCH 30.7 pg (27.0-33.0); MCHC 33.4 % (32.0-36.0); MCV 92 fL (80-95); MPV 9.2 fL (8.0-11.0); Monocytes % 16.6; Neutrophils % 46.3; Platelet Count 141 10^3/uL (130-400); RBC 4.63 10^6/uL (4.36-5.78); RDW 14.7 % (11.8-14.1); RDW-SD 50.1 fL; WBC 3.67 10^3/uL (4.4-10.8)
[2021-10-12 10:48] LABS: ALT 19 U/L (16-63); AST 14 U/L (15-37); Albumin 3.2 g/dL (3.4-5.0); Alkaline Phosphatase 81 U/L (46-116); Anion Gap 7.5 mmol/L (3-11); BUN 14 mg/dL (7-18); Bilirubin, Total 0.7 mg/dL (0.2-1.0); CO2 27.5 mmol/L (21.0-32.0); CREATININE 1.5 mg/dL (0.70-1.30); Calcium 8.5 mg/dL (8.5-10.1); Chloride 108 mmol/L (98-107); Estimated GFR 44.92 (mL/min/1.73m2); Glucose 93 mg/dL (74-106); Potassium 4.2 mmol/L (3.5-5.1); Sodium 143 mmol/L (136-145); Total Protein 6.6 g/dL (6.4-8.2)
[2021-10-13 13:01] LABS: IgA 639 mg/dL (85-499); IgG 803 mg/dL (610-1,616); IgM 32 mg/dL (35-242); Lambda Free Light Chain 2.05 mg/dL (0.57-2.63)
[2021-10-13 14:17] LABS: Albumin 57.3 % (55.8-66.1); Albumin g/dL 3.6 g/dL (3.6-5.2); Comment (See Note); Monoclonal Spike 7.6 % (None Seen); Monoclonal Spike g/dL 0.5 g/dL (None Seen); Total Protein 6.3 g/dL (6.3-8.2)
== END 2021-10-12 03:35 | disposition home or self-care (01) ==
LOC: LBO 03:35
PROVIDERS: PCP Family Medicine; Visit Provider Internal Medicine Hematology & Oncology
DX: C90.00 Multiple myeloma not having achieved remission (principal)
CPT/HCPCS: 36415; 80053; 82784; 83883; 84165; 85025

== ENCOUNTER 2022-01-06 03:03 | Outpatient (CLI) | payer MEDICARE, SELFPAY ==
[2022-01-06 11:21] LABS: Abs Immature Grans 0.01 10^3/uL (0.0-0.06); Absolute Basophil Count 0.14 10^3/uL (0.0-0.2); Absolute Eosinophil Count 0.29 10^3/uL (0.0-0.7); Absolute Lymphocyte Count 1.09 10^3/uL (1.2-3.4); Absolute Monocyte Count 0.62 10^3/uL (0.1-0.8); Absolute Neutrophil Count 2.22 10^3/uL (1.2-6.7); Basophils % 3.2; Eosinophils % 6.6; HCT 43.7 % (40.0-50.0); HGB 14.7 g/dL (13.5-17.5); Immature Grans % 0.2; Lymphocytes % 24.9; MCH 30.6 pg (27.0-33.0); MCHC 33.6 % (32.0-36.0); MCV 91 fL (80-95); Monocytes % 14.2; Neutrophils % 50.9; Platelet Count 168 10^3/uL (130-400); RDW 13.7 % (11.8-14.1); RDW-SD 46.5 fL; WBC 4.37 10^3/uL (4.4-10.8)
[2022-01-06 11:36] LABS: ALT 13 U/L (16-63); AST 19 U/L (15-37); Albumin 3.4 g/dL (3.4-5.0); Alkaline Phosphatase 76 U/L (46-116); Anion Gap 9.4 mmol/L (3-11); BUN 13 mg/dL (7-18); CO2 25.6 mmol/L (21.0-32.0); CREATININE 1.4 mg/dL (0.70-1.30); Calcium 8.5 mg/dL (8.5-10.1); Chloride 106 mmol/L (98-107); Estimated GFR 50.49 (mL/min/1.73m2); Glucose 93 mg/dL (74-106); Potassium 4.3 mmol/L (3.5-5.1); Sodium 141 mmol/L (136-145)
[2022-01-10 10:53] LABS: IgA 860 mg/dL (85-499); IgG 821 mg/dL (610-1616); IgM 34 mg/dL (35-242); Kappa Free Light Chain 16.75 mg/dL (0.33-1.94); Lambda Free Light Chain 2.07 mg/dL (0.57-2.63)
[2022-01-10 13:48] LABS: Albumin 55.5 % (55.8-66.1); Albumin g/dL 3.6 g/dL (3.6-5.2); Comment (See Note); Monoclonal Spike 8.6 % (None Seen); Monoclonal Spike g/dL 0.6 g/dL (None Seen); Total Protein 6.4 g/dL (6.3-8.2)
== END 2022-01-06 03:04 | disposition home or self-care (01) ==
LOC: LBO 03:03
PROVIDERS: PCP Family Medicine; Visit Provider Internal Medicine Hematology & Oncology
DX: C90.00 Multiple myeloma not having achieved remission (principal)
CPT/HCPCS: 36415; 80053; 82784; 83883; 84165; 85025

== ENCOUNTER 2022-08-25 09:22 | Outpatient (CLI) | payer MEDICARE, SELFPAY ==
[2022-08-25 09:21] LABS: Abs Immature Grans 0.02 10^3/uL (0.0-0.06); Absolute Basophil Count 0.05 10^3/uL (0.0-0.2); Absolute Lymphocyte Count 0.61 10^3/uL (1.2-3.4); Absolute Monocyte Count 0.53 10^3/uL (0.1-0.8); Absolute Neutrophil Count 1.49 10^3/uL (1.2-6.7); Basophils % 1.6; Eosinophils % 12.9; HCT 39.7 % (40.0-50.0); HGB 13.7 g/dL (13.5-17.5); Immature Grans % 0.6; Lymphocytes % 19.7; MCH 30.6 pg (27.0-33.0); MCHC 34.5 % (32.0-36.0); MCV 89 fL (80-95); MPV 9.9 fL (8.0-11.0); Monocytes % 17.1; Neutrophils % 48.1; Platelet Count 138 10^3/uL (130-400); RBC 4.48 10^6/uL (4.36-5.78); RDW 14.6 % (11.8-14.1); RDW-SD 47.1 fL
[2022-08-25 09:40] LABS: ALT 14 U/L (16-63); AST 11 U/L (15-37); Alkaline Phosphatase 74 U/L (46-116); Anion Gap 9.3 mmol/L (3-11); BUN 12 mg/dL (7-18); Bilirubin, Total 0.9 mg/dL (0.2-1.0); CO2 25.7 mmol/L (21.0-32.0); CREATININE 1.5 mg/dL (0.70-1.30); Calcium 8.5 mg/dL (8.5-10.1); Chloride 106 mmol/L (98-107); Estimated GFR 46.19 (mL/min/1.73m2); Glucose 97 mg/dL (74-106); Potassium 3.5 mmol/L (3.5-5.1); Sodium 141 mmol/L (136-145); Total Protein 6.6 g/dL (6.4-8.2)
[2022-08-26 09:29] LABS: IgA 644 mg/dL (85-499); IgG 759 mg/dL (610-1616); IgM 25 mg/dL (35-242)
[2022-08-26 13:30] LABS: Albumin 53.5 % (55.8-66.1); Albumin g/dL 3.4 g/dL (3.6-5.2); Comment (See Note); Monoclonal Spike 7.6 % (None Seen); Monoclonal Spike g/dL 0.5 g/dL (None Seen); Total Protein 6.3 g/dL (6.3-8.2)
== END 2022-08-25 09:23 | disposition home or self-care (01) ==
LOC: LBO 09:22
PROVIDERS: PCP Family Medicine; Visit Provider Internal Medicine Hematology & Oncology
DX: C90.00 Multiple myeloma not having achieved remission (principal)
CPT/HCPCS: 36415; 80053; 82784; 84165; 85025

== ENCOUNTER 2022-09-01 08:24 | Outpatient (CLI) | payer MEDICARE, SELFPAY ==
[2022-09-01 08:01] LABS: Abs Immature Grans 0.01 10^3/uL (0.0-0.06); Absolute Basophil Count 0.06 10^3/uL (0.0-0.2); Absolute Eosinophil Count 0.15 10^3/uL (0.0-0.7); Absolute Lymphocyte Count 0.68 10^3/uL (1.2-3.4); Absolute Monocyte Count 0.48 10^3/uL (0.1-0.8); Absolute Neutrophil Count 2.03 10^3/uL (1.2-6.7); Basophils % 1.8; Eosinophils % 4.4; HCT 40.6 % (40.0-50.0); HGB 13.8 g/dL (13.5-17.5); Immature Grans % 0.3; Lymphocytes % 19.9; MCH 30.3 pg (27.0-33.0); MCV 89 fL (80-95); MPV 8.9 fL (8.0-11.0); Monocytes % 14.1; Neutrophils % 59.5; Platelet Count 163 10^3/uL (130-400); RBC 4.56 10^6/uL (4.36-5.78); RDW 14.9 % (11.8-14.1); RDW-SD 48.2 fL; WBC 3.41 10^3/uL (4.4-10.8)
[2022-09-01 08:18] LABS: ALT 16 U/L (16-63); AST 12 U/L (15-37); Alkaline Phosphatase 81 U/L (46-116); Anion Gap 6.7 mmol/L (3-11); BUN 15 mg/dL (7-18); Bilirubin, Total 0.6 mg/dL (0.2-1.0); CO2 27.3 mmol/L (21.0-32.0); CREATININE 1.6 mg/dL (0.70-1.30); Calcium 8.5 mg/dL (8.5-10.1); Chloride 107 mmol/L (98-107); Estimated GFR 42.75 (mL/min/1.73m2); Glucose 79 mg/dL (74-106); Sodium 141 mmol/L (136-145); Total Protein 6.4 g/dL (6.4-8.2)
[2022-09-02 09:13] LABS: IgA 458 mg/dL (85-499); IgG 718 mg/dL (610-1616); IgM 24 mg/dL (35-242)
[2022-09-02 09:35] LABS: Kappa Free Light Chain 3.23 mg/dL (0.33-1.94); Lambda Free Light Chain 1.16 mg/dL (0.57-2.63)
[2022-09-02 15:18] LABS: Albumin 54.2 % (55.8-66.1); Albumin g/dL 3.2 g/dL (3.6-5.2); Comment (See Note); Monoclonal Spike 6.5 % (None Seen); Monoclonal Spike g/dL 0.4 g/dL (None Seen); Total Protein 5.9 g/dL (6.3-8.2)
[2022-09-02 16:49] LABS: Immunotyping, Serum (See Note)
== END 2022-09-01 08:25 | disposition home or self-care (01) ==
LOC: LBO 08:24
PROVIDERS: PCP Family Medicine; Visit Provider Internal Medicine Hematology & Oncology
DX: C90.00 Multiple myeloma not having achieved remission (principal)
CPT/HCPCS: 36415; 80053; 82784; 83883; 84165; 85025; 86320